=== PATIENT | male | born 1960 | race Two or more races ===

== ENCOUNTER 2021-01-19 13:50 | Emergency (ER) | payer OTHER ==
[~2021-01-19] VITALS: Ht 170.2 cm; Wt 90.7 kg
[2021-01-19] MEDS ORDERED: CRESTOR10 MG (15:53)
[2021-01-19] MEDS ORDERED: SYNTHROID75 MCG (15:53)
[2021-01-19] MEDS ORDERED: CIPRO500 MG PO (19:10)
[2021-01-19] MEDS ORDERED: CORTISPORIN EAR10 M1 OT (19:10)
== END 2021-01-19 19:36 | disposition home or self-care (01) ==
LOC: ER 13:50
DX: N39.0 Urinary tract infection, site not specified (principal); H60.92 Unspecified otitis externa, left ear; R42 Dizziness and giddiness